=== PATIENT | female | born 2000 | race Caucasian/White ===

== ENCOUNTER 2020-08-08 17:05 | Emergency (ER) | payer BC, SELFPAY ==
[2020-08-08 17:13] VITALS: BP 121/81; PULSE 111; RESP 14; TEMP 36.9; O2SAT 100; BMI 16.7
--- NOTE | 2020-08-08 17:24 | HMH.EDUTC ---
[facility] [place] Disposition Clinical Impression: Exposure to COVID-19 virus, Loss of perception for taste, Viral syndrome Disposition: Home, Self-Care Condition on Discharge: Good Instructions: Preventing the Spread of Coronavirus Discharge Instructions Additional Instructions: Drink plenty of fluids. Take tylenol or ibuprofen for pain or fever. Follow up with your regular doctor. GO TO THE ER FOR ANY WORSENING SYMPTOMS FOLLOW THE DIRECTIONS ON THE COVID-19 HAND OUT THAT WE GAVE YOU REGARDING SELF-ISOLATION UNTIL YOU KNOW YOUR COVID-19 RESULTS Referrals: Jaya Borrego MD [Primary Care Provider] - Forms: Work/School Release Time of Disposition: 17:25 Medical Decision Making - Medical Records Medical records reviewed: No: I reviewed the patient's medical records. - Ronaldo Inquiry Pt receiving controlled substance: No Vital Signs: 08/08/20 17:13 08/08/20 17:30 Temperature 98.5 F 98.5 F Temperature Source Oral Pulse Rate 111 H Pulse Rate [Right Brachial] 111 H Respiratory Rate 14 14 Blood Pressure 121/81 Blood Pressure [Right Arm] 121/81 Blood Pressure Mean [Right Arm] 94 Blood Pressure Source [Right Arm] Automatic Cuff Blood Pressure Position [Right Arm] Sitting 02 Sat by Pulse Oximetry 100 Oxygen Delivery Method Room Air [facility] [place] HPI - General Stated complaint: COVID Testing Time Seen by Provider: 08/08/20 17:24 Mode of Arrival: Ambulatory Source of Information: Patient Limitations: No Limitations Description of Symptoms (Recalled from Triage Doc. by RN): PATIENT C/O COUGH, SORE THROAT, RUNNY NOSE AND NAUSEA. 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 She denies any cough, shortness of breath or other symptoms, other than the taste changes. - Related Data Home Medications Medication Instructions Recorded Confirmed No Known Home Medications 08/08/20 08/08/20 Allergies Allergy/AdvReac Type Severity Reaction Status Date / Time No Known Allergies Allergy Verified 08/08/20 17:16 - Worker's Comp Is this a Worker's Comp case?: No [facility] History - Hepatitis A Screen Drug use history?: No High risk sexual behaviors?: No History of sexually transmitted infection?: No Currently employed?: No Childcare worker?: No Do you have indoor plumbing?: Yes Do you have electricity?: Yes Attestation statement:: This patient has been screened for Hepatitis A risk factors. I have reviewed the patient's past medical history: Yes - Social History Alcohol Intake: never Occupational Status: other ROS Obtained: Yes All systems reviewed & no additional complaints - Constitutional Constitutional: Denies chills, Denies fever(s) - Eyes Eyes: Denies eye discharge - ENT Ears, Nose, Mouth, and Throat: Denies dizziness, Denies otalgia, Denies sore throat - Cardiovascular Cardiovascular: Denies chest pain - Respiratory Respiratory: No chest congestion, No cough, No dyspnea, No stridor, No wheezing Physical Exam - General General appearance: alert, in no apparent distress - Head Head exam: atraumatic, normocephalic, normal inspection - Eye Eye exam: Present: normal appearance, PERRL, EOMI - ENT ENT exam: Present: mucous membranes moist, TM's normal bilaterally, normal external ear exam - Expanded ENT Exam Mouth exam: Present: normal external inspection Teeth exam: Present: normal inspection Throat exam: Present: tonsillar erythema. Absent: tonsillomegaly, tonsillar exudate, R peritonsillar mass, L peritonsillar mass - Neck Neck exam: Presen
[2020-08-08 17:30] VITALS: BP 121/81; PULSE 111; RESP 14; TEMP 36.9; O2SAT 100
== END 2020-08-08 17:32 | disposition home or self-care (01) ==
PROVIDERS: Emergency Provider Nurse Practitioner Family; PCP Internal Medicine Adolescent Medicine
DX: U07.1 COVID-19 (principal); B34.9 Viral infection, unspecified
CPT/HCPCS: 99201; U0003

== ENCOUNTER 2021-11-19 09:03 | Emergency (ER) | payer BC, SELFPAY ==
[2021-11-19 09:42] LABS: UTC Influenza A Antigen Negative (Negative); UTC Influenza B Antigen Negative (Negative); UTC Strep Screen (Rapid) Positive (Negative)
[2021-11-19 09:45] VITALS: BP 91/64; PULSE 125; RESP 14; TEMP 37.2; O2SAT 99; BMI 17.0
--- NOTE | 2021-11-19 09:55 | HMH.EDUTC ---
[facility] [place] Clinical Impression: Strep throat Disposition: Home, Self-Care Condition on Discharge: Good Instructions: DI for Strep Throat, Strep Throat, Amoxicillin Additional Instructions: *Monitor Temp, Over the counter Motrin or Tylenol as directed/as needed Tylenol every 4 hours and Motrin every 6 hours (as long as your family doctor has told you that you can take it) for fever or pain. and straight to ER if unable to lower temp less than 101.0 after medication given *Warm salt water gargles may help to soothe the throat *Throat Lozenges *Warm fluids like tea with honey may help to soothe the throat *Sleep elevated *Humidifier/Vaporizer Take medication as prescribed Follow up IMMEDIATELY for new or worsening symptoms or no Noticeable improvement over the next 48-72 hours. 911 for difficulty breathing or swallowing You were tested for today for COVID19 your test result should be back in the next 24-48 hours, you may check your results on the [facility] My Health Portal if you have trouble logging on you may call support to help you You was given a handout with instructions for Self Quarantine and Self isolation for while you wait on test results and what to do if they are positive If you are positive the Health Dept will be contacting you also Make sure to take your Vitamins Vit. C Vit D and Zinc if you can take them Prescriptions: Amoxicillin [Amoxicillin 500mg Cap] 500 mg PO BID 10 Days #20 cap Transmission Status: Pending to [id number] Referrals: Jaya Borrego MD [Primary Care Provider] - As needed Forms: Work/School Release Time of Disposition: 10:00 Medical Decision Making - Ronaldo Inquiry Pt receiving controlled substance: No Ronaldo was queried for this patient: No Vital Signs: 11/19/21 09:45 Temperature 98.9 F Temperature Source Oral Pulse Rate [Left] 125 H Respiratory Rate 14 Blood Pressure [Right Arm] 91/64 L Blood Pressure Mean [Right Arm] 73 02 Sat by Pulse Oximetry 99 - Lab Data Lab results reviewed: Yes: I reviewed the patient's lab results. Lab Results 11/19/21 09:41: Influenza Type A Ag Negative, Influenza Type B Ag Negative 11/19/21 09:41: Strep Scn [facility] Positive A Medical Decision Narrative: rechecked bp with pediatric cuff due to patient size 107/62 [facility] [place] HPI - General Stated complaint: fever, sore throat, h/a Time Seen by Provider: 11/19/21 09:56 Mode of Arrival: Ambulatory Source of Information: Patient Limitations: No Limitations Description of Symptoms (Recalled from Triage Doc. by RN): pt c/o a sore throat, fever and MATOS. HEENT Symptoms (Recalled from RN notes): Yes (sore throat and MATOS) Resp Symptoms (Recalled from RN notes): No Skin Symptoms (Recalled from RN notes): No MS Symptoms (Recalled from RN notes): No Functional Status (Recalled from RN notes): wnl - History of Present Illness Provider Complaint: Patient states that she has been having sore throat, headache and fever State that she looked at her throat in the mirror this morning and noticed she had a white patchy area that looked like blisters on her left tonsil States that she was worried she may have strep throat again - Related Data Previous Rx's Medication Instructions Recorded Amoxicillin [Amoxicillin 500mg 500 mg PO BID 10 Days #20 cap 11/19/21 Cap] Allergies Allergy/AdvReac Type Severity Reaction Status Date / Time azithromycin [From Zithromax] Allergy Verified 11/19/21 09:48 - Worker's Comp Is this a Worker's Comp case?: No [facility] History - Hepatitis A Screen Drug use history?: No High risk sexual behaviors?: No History of sexually transmitted infection?: No Currently employed?: No Childcare worker?: No Do you have indoor plumbing?: Yes Do you have electricity?: Yes Attestation statement:: This patient has been screened for Hepatitis A risk factors. I have reviewed the patient's past medical history: Yes - Social History Alcoho
[2021-11-19 10:14] VITALS: BP 107/62; PULSE 119; RESP 14; TEMP 37.2
== END 2021-11-19 10:15 | disposition home or self-care (01) ==
PROVIDERS: Emergency Provider Nurse Practitioner; PCP Internal Medicine Adolescent Medicine
DX: J02.0 Streptococcal pharyngitis (principal)
CPT/HCPCS: 87804; 87880; 99203; C9803; G0463; U0003; U0005